=== PATIENT | male | born 1960 | race Caucasian/White ===

== ENCOUNTER 2016-12-30 18:13 | Observation (INO) | payer OTHER ==
[~2016-12-30] VITALS: Ht 195.6 cm; Wt 76.8 kg
[2016-12-30 18:30] VITALS: BP 103/66; PULSE 68; RESP 16; O2SAT 97
--- NOTE | 2016-12-30 18:58 | ED.REPORT ---
HPI-General Illness Date of Service Dec 30, 2016 ED Provider: Cheo Peñaloza Patient is a 62 year old male who presents to the ED via EMS smelling of alcohol and barely responsive to painful stimuli. He was found by someone who was picking him up to go to an AA meeting. He is able to maintain his own airway and is awake but is not responsive to questioning. Nursing Notes Stated Complaint: INTOXICATED Chief Complaint: Substance Abuse Nursing Notes Reviewed: Yes Allergies: Coded Allergies: No Known Allergies (Unverified , 12/30/16) General Time Seen by MD: 18:57 Chief Complaint Other (Intoxication) Hx Obtained From: EMS Arrived By: Ambulance Past Medical History Unable to Obtain History Past medical history, Past surgical history, Family history, Smoking history, Social history Review of Systems Unable to Obtain ROS Intoxicated (I was able to gather somewhat of the review of systems after Mr. Campbell started to sober up. He does not have any specific complaints.) Full Review of Systems Constitutional: Denies: Chills Eyes: Denies: Blurred left, Blurred right Respiratory: Denies: Dyspnea on exertion Cardiovascular: Denies: Chest pain, Orthopnea GI: Denies: Abdominal pain Male: Denies Dysuria, Denies Flank pain Musculoskeletal: Denies: Back pain, Extremity swelling Physical Exam Vital Signs Vital Signs Date Time Temp Pulse Resp B/P Pulse Ox O2 Delivery O2 Flow Rate FiO2 12/30/16 19:40 65 17 108/60 97 Room Air 12/30/16 18:30 36.1 68 16 103/66 97 Room Air Head / Eyes: Atraumatic, Normocephalic Neck: Full range of motion Respiratory: No respiratory distress Abdomen / GI: Soft, Non-tender Extremities: No swelling Skin: Warm, Dry General/Constitutional: Awake Yawns, looks at me when questioned but does not answer and stares away. Back: Atraumatic Mental Status: Positive: Responds to painful stim, Responds to verbal stim Interpretation & Diagnostics Lab Results Interpretation Result Diagram: 12/30/160 12/30/16 183 Test 12/30/16 18:30 White Blood Count 7.9th/mm3 (3.8-10.1) Red Blood Count 5.56mil/mm3 (4.40-5.80) Hemoglobin 17.6g/dL (13.8-17.2) Hematocrit 51.3% (41.0-50.0) Mean Corpuscular Volume 92.3fL (81-100) Mean Corpuscular Hemoglobin 31.7pg (27.0-35.0) Mean Corpuscular Hemoglobin Concent 34.3% (32.0-37.0) Red Cell Distribution Width 14.0% (12.3-15.4) Platelet Count 153bil/L (150-400) Neutrophils (%) (Auto) 55.2% (40-74) Lymphocytes (%) (Auto) 35.2% (14-46) Monocytes (%) (Auto) 4.7% (4-12) Eosinophils (%) (Auto) 3.8% (0-5) Basophils (%) (Auto) 0.5% (0-3) Sodium Level 143mEq/L (134-144) Potassium Level 5.0mEq/L (3.5-5.2) Chloride Level 104mEq/L (97-108) Carbon Dioxide Level 19mmol/L (18-29) Blood Urea Nitrogen 10mg/dL (8-27) Creatinine 0.85mg/dL (0.76-1.27) Estimat Glomerular Filtration Rate 97mL/min (>59) Glucose Level 93mg/dL (60-99) Calcium Level 8.6mg/dL (8.5-10.1) Total Bilirubin 0.4mg/dL (0.0-1.2) Aspartate Amino Transf (AST/SGOT) 156U/L (0-50) Alanine Aminotransferase (ALT/SGPT) 108U/L (0-44) Alkaline Phosphatase 53U/L (25-160) Troponin T < 0.010ug/L (0.0-0.011) Total Protein 7.4g/dL (6.4-8.4) Albumin 4.0g/dL (3.4-5.0) Alcohols 468mg/dL (0-10) Lab Results Interpretation: EtOH level at 1933 was 468 ECG Interpretation ECG Interpretation: sinus bradycardia rate 62 < 1mm ST elevation v3 alone Time: 19:19 Interpreted by: ED physician CT Head Interpretation IMPRESSION: 1. No acute intracranial findings. 2. 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 Mara Kiviat, M.D. Study: Head CT no contrast Interpretation / Wet Read by: Interpret - Radiologist Re-Eval/Medical Decision Med Decision/Clinical Course Patient presented smelling of alcohol with no signs of obvious trauma. However, he would not answer questions therefore we performed a head CT with found no evidence of injury. He had an alcohol level >450 and was given IV fluids. He has been resting comfortably. He will be discharged home when sober. 2326: Beck is resting comfortably. He offers no complaint. I asked him specifically if he is having any chest pain and he says no. He also denies having any trauma or any complaints. His speech is still somewhat slurred. His initial voss EKG was not indicative of an HI however is not normal. This will be repeated as was his troponin. Care will be endorsed to Dr. Hebert at the conclusion of my shift. Time of Eval: 21:38 Re-Evaluation/Progress Note: Patient is starting to awake and was able to give his name to the nurse. Discharge & Departure Shift Change Sign-Out Patient Care Transferred: Yes Discussed Complaint(s): Yes Imaging Studies: Done, reviewed by me Response to Therapy: Improved Transfer of Care to Dr. Hebert at 0000 Primary Impression: Alcohol abuse Care Transferred to: Dr. Hebert Care Transferred at: 00:00 Scribe Attestation Portions of this note were transcribed by Zaira Gibson. I, Dr. Peñaloza personally performed the history, physical exam and medical decision-making; I reviewed and confirmed the accuracy of the information in the transcribed note. Signed by: Zaira Gibson 12/31/16, 0000 Cheo Peñaloza DO Dec 30, 2016 18:58 ZAIRA GIBSON Dec 30, 2016 19:04
[2016-12-30 19:01] LABS: BASOPHILS % (AUTO) 0.5 % (0-3); EOSINOPHILS % (AUTO) 3.8 % (0-5); MONOCYTES % (AUTO) 4.7 % (4-12); Mean Corpuscular Hemoglobin 31.7 pg (27.0-35.0); Mean Corpuscular Volume 92.3 fL (81-100); NEUTROPHILS % (AUTO) 55.2 % (40-74); Platelet Count 153 bil/L (150-400)
[2016-12-30 19:38] LABS: TROPONIN T < 0.010 ug/L (0.0-0.011)
[2016-12-30 19:40] VITALS: BP 108/60; PULSE 65; RESP 17; O2SAT 97
[2016-12-30 23:35] VITALS: BP 101/62; PULSE 67; RESP 18; O2SAT 97
[2016-12-31] VITALS (17 sets, daily range): BP systolic 96–124; BP diastolic 45–75; PULSE 56–71; RESP 10–22; O2SAT 96–98
[2016-12-31] MEDS ORDERED: Ondansetron 2 mg/mL 2 mL Inj IVPUSH PRN (09:20)
[2016-12-31] MEDS ORDERED: Alum-Mag Hydrox-Simeth 30 mL Suspension PO PRN (09:20)
[2016-12-31] MEDS ORDERED: Polyethylene Glycol (PEG) 17 Gm Powder PO PRN (09:20)
[2016-12-31] MEDS ORDERED: Heparin 5,000 Unit/mL Inj IVPUSH ONE (09:50)
[2016-12-31] MEDS ORDERED: Heparin 25K Unit/500mL 0.45 NS 25,000 UNIT in IV Premix 1 EACH IV ONE (09:50)
[2016-12-31] MEDS ORDERED: Heparin 25K Unit/500mL 0.45 NS 25,000 UNIT in IV Premix 1 EACH IV SCH (10:55)
[2016-12-31] MEDS ORDERED: Heparin 5,000 Unit/mL Inj IVPUSH PRN (10:55)
--- NOTE | 2016-12-31 11:09 | DRSVH ---
[facility] [address] [place] [address] Echocardiogram Report Name: MOIRA DOMINGUEZ JStudy Matthew e: 12/31/2016 Rehan ht: 76 in Hospital Exam Location: [facility] ht: 182 lb Gender: Male BSA: 2.1 m2 : 1960 Age: 56 yrs BP: 99/55 mmHg Reason For Study: NSTEMI Ordering Physician: [facility]PITAL[facility] Performed By: Chapis Ríos Referring Physician: Cb Bolanos Interpretation Summary The left ventricle is normal in size, wall thickness, and systolic function without any focal wall motion abnormalities. The ejection fraction is estimated to be 55-60%. There is no significant valvular heart disease. Procedure: A two-dimensional transthoracic echocardiogram with color flow and Doppler was performed. The study quality was technically adequate. Most of the acoustic windows were suboptimal, but the best imaging was obtained from the subcostal window. The study is performed in the ER. The patient was in a bradycardic rhythm during the exam. The heart rate ranged between 52-59 bpm during the study. Left Ventricle: The left ventricle is normal in size, wall thickness, and systolic function without any focal wall motion abnormalities. The ejection fraction is estimated to be 55-60%. The E/A wave ratio > 2.0 could be indicative of increased preload or reduced atrial contractility. Clinical correlation is necessary. Right Ventricle: The right ventricle is normal in size and function. Atria: Both atria are normal in size. There is no Doppler evidence for an atrial septal defect. Mitral Valve: The mitral valve leaflets appear normal. There is no evidence of stenosis, fluttering, or prolapse. There is trace mitral regurgitation. Aortic Valve: The aortic valve is trileaflet. The aortic valve opens well. No aortic regurgitation is present. Tricuspid Valve: The tricuspid valve leaflets are thin and pliable. There is a trace or physiologic amount of tricuspid regurgitation. Pulmonary artery pressures cannot be estimated because of the lack of a measurable TR jet velocity. Pulmonic Valve: The pulmonic valve is not well visualized. There is no pulmonic valvular regurgitation. Great Vessels: The aortic root is normal size. The ascending aorta could not be visualized. The pulmonary artery is not well visualized, but is probably normal size. The IVC is of normal diameter and collapses greater than 50% with a sniff. This suggests a low right atrial pressure of 3 mm Hg. Pericardium/ Pleura There is no pericardial effusion. There is no pleural effusion. MMode/2D Measurements & Calculations LVIDd: 4.7 cm LA dimension: 3.1 cm RA long axis LVOT diam: 2.2 cm LVIDs: 3.4 cm AoV Opening FS: 27.9 % LA A2 area: 17.3 cm RA area EPSS: 0.40 cm LA A4 area: 17.2 cm Ao root diam IVSd: 0.81 cm LA length (vol) : 14.5 cm LVPWd: 0.94 cm RA vol Ao Arch Diam (Prox LA vol: 48.4 ml : 45.0 ml Trans): 3.0 cm LA vol index RA : 21.1 mm/ RVDd major IVC diam: 1.8 cm : 6.5 cm LV chung. diameter/BSA LV sys. diameter/BSA RVD2 (mid) (cm/m^2): 2.2 (cm/m^2): 1.6 : 3.3 cm Doppler Measurements & Calculations Ao V2 max MV E max josé miguel MV E/A: 2.8 PA V2 max : 111.8 cm/sec : 77.6 cm/sec Pulm A Revs : 69.7 cm/sec Ao max P.0 mmHg MV A max josé miguel Dur: 0.13 sec PA mean PG Ao mean P.5 mmHg : 27.6 cm/sec MV A dur : 1.0 mmHg LVOT Max José Miguel MV P1/2t: 96.9 msec : 0.16 sec : 117.9 cm/sec VERONICA(I,D): 3.6 cm sev ratio: 0.99 MV P1/2t max josé miguel Ao V2 mean LV V1 max PG PA V2 mean : 74.1 cm/sec : 47.3 cm/sec Ao V2 VTI: 24.6 cm LV V1 VTI PA pr(Accel) MVA(P1/2t): 2.3 cm2 : 24.4 cm : 29.1 mmHg VERONICA(V,D): 3.8 cm2 VERONICA indexed to BSA Anjel Roy Dur - MV A (cm^2/m^2): 1.7 Dur: -0.03 msec Electronically signed by: Tucker Prabhakar on Reading Physician:12/31/2016 11:08 AM
[2016-12-31] MEDS ORDERED: Thiamine Inj 100 MG in Dextrose 5% 50 ML IV ONE (11:15)
[2016-12-31] MEDS ORDERED: Thiamine Inj 100 MG, Folic Acid Inj 1 MG, Magnesium Sulfate 50% Inj 2 GM, Multivitamins... IV ONE ×5 (11:15)
[2016-12-31 11:54] LABS: INR 0.93 ratio
[2016-12-31] MEDS ORDERED: LEVO200T6 PO (12:49)
--- NOTE | 2016-12-31 13:10 | NUR ---
admit pt arrived to [facility] from ED soil of urine. Pt was A&OX4, answered questions appropriately but was forgetful. VS WNL. IV therapy had to start IV as pt had pulled two out in ER. Banana bag and thiamine started. MD and pts family at bedside. Pt stated that he started drinking 1-2L of liquor a day 2 weeks ago after being sober for 5 years. Pts blood ETOH was 468 in ER and blew a 1.98 at 0730. CIWA score at initial assessment was zero and pt still appeared to be intoxicated as evidence by slurred speech and smell of alcohol. Pt has hx of seizures with ETOH withdrawals. Fall and seizure precautions in place. EKG done at bedside. Pt left for kiln labourer after assessment.
[2016-12-31] MEDS ORDERED: Nitroglycerin 50,000 mcg/250 mL D5W Premix IV ONE (13:23)
[2016-12-31] MEDS ORDERED: Heparin 1,000 Units/500 mL NS Premix IV ONE (13:23)
[2016-12-31] MEDS ORDERED: 0.9% Sodium Chloride 1,000 ML ONE (13:23)
[2016-12-31] MEDS ORDERED: Heparin 5,000 Unit/mL Inj ONE (13:23)
[2016-12-31] MEDS: Thiamine Inj 100 MG in 0.9% Sodium Chloride 100 ML IV SCH (13:30)
[2016-12-31] MEDS: Multivit-Miner-Folic Acid-Iron Tablet PO SCH (13:30)
--- NOTE | 2016-12-31 13:45 | NUR ---
off unit pt left unit to director of cath lab. no s/s of distress at time of transfer
[2016-12-31] MEDS ORDERED: fentaNYL-PF 50 mCg/mL 2 mL Inj ONE (13:56)
--- NOTE | 2016-12-31 14:08 | CONS ---
[address] [address] CONSULTATION REPORT PATIENT: MOIRA DOMINGUEZ : 1960 MR#: [id number] ADMIT: 12/31/2016 JOB ID: [id number] DATE OF SERVICE: 12/31/2016 REQUESTED BY: Gregory Corona DO. REASON FOR EVALUATION: Abnormal EKG and elevated troponin. HISTORY: The patient is a 56 years old alcoholic male. He stated that he has not drank for five years, and he went back to drinking 1-1/2 weeks ago. He has not eaten anything for the past 3-4 days. When he drank, he got drunk. He was found this morning by someone who was picking him up to go to an AA meeting. He was intoxicated when he arrived in the emergency department yesterday evening. EKG from yesterday at 7:11 p.m. shows sinus rhythm, rate [address]-segment elevation. Repeat EKG this morning showed inferior ST-segment elevation as well. PAST MEDICAL HISTORY: Thyroid disorder. PAST SURGICAL HISTORY: None. HOME MEDICATIONS: Thyroid pill. SOCIAL HISTORY: He lives in [place]. He works as a león. He used to smoke one pack every three days for 30 years. He used coke, pot and heroin in the past. He quit those 12 years ago. FAMILY HISTORY: No history of premature coronary artery disease. REVIEW OF SYSTEMS: All 10 systems are reviewed and pertinent negative for no chest pain. He has some back pain. He had his physical in October of this year. PHYSICAL EXAMINATION: Reveals a middle-aged male who appears older than his stated age. Temperature is 36.6. Blood pressure is 112/66. Pulse 69. Body weight is 76.7 kg. Head and face have normal configuration. Anicteric sclerae. Dry mucosa. Neck supple. No jugular venous distention or carotid bruits. Chest: Normal expansion. Lungs are clear to auscultation. Heart: The first and second heart sounds normal. No gallop or murmur. Abdomen: Soft, nontender. Extremities: No clubbing, cyanosis, or edema. Peripheral pulses are equal bilaterally. Neurologic was intact. Echocardiogram showed normal left ventricular size with ejection fraction 55% to 60%. No valvular abnormality. BLOOD TESTS: Show hemoglobin 17.6, WBC 7.9, platelets 153. Sodium 143, potassium 5.0, chloride 104, bicarb 19, BUN 10, creatinine 0.85. AST 156, ALT 108. Troponin T was less than 0.01, then went up to 0.021, 0.031 and 0.030. Blood alcohol level is 468. IMPRESSION: 1. Elevated troponin. 2. Diffuse ST segment elevation, compatible with pericarditis. 3. Alcoholic. 4. History of smoking. PLAN: I will arrange for the patient to undergo coronary angiogram to delineate his coronary anatomy and risk stratification. I do not expect to find any significant coronary artery disease. I explained the rationale of performing the procedure to the patient. He understands and agreed to proceed with the procedure. PAOLA
--- NOTE | 2016-12-31 14:44 | CS94 ---
[address] [address] DIAGNOSTIC CARDIAC CATHETERIZATION PATIENT: MOIRA DOMINGUEZ : 1960 MR#: [id number] ADMIT: 12/31/2016 JOB ID: [id number] SERVICE DATE: 12/31/2016 PATIENT PROFILE: The patient is a 56-year-old male who is an alcoholic. He has ST-segment elevation and elevated troponin. PROCEDURES: 1. Retrograde left heart catheterization. 2. Selective coronary angiogram. 3. Left ventricular angiogram. VASCULAR CLOSURE DEVICE: Perclose. COMPLICATIONS: None. METHOD: Retrograde left heart catheterization was performed from the right groin under 1% lidocaine local anesthesia using a 6-Central African sheath. Selective coronary angiogram was performed in multiple projections, including cranial and caudal angulations with hand injected contrast via JL4 and 3DRC catheters. A 6-Central [place] angulated pigtail catheter was advanced to the left ventricle and left ventricular angiogram was performed in the 30 degree GALLEGOS view by injecting contrast at the rate of 10 cc/second for 3 seconds. This catheter was withdrawn. Right femorla angiogram was performed. Following sheath removal, hemostasis was achieved by using a Perclose device. The patient tolerated the procedure well. He was transferred to [facility] in good condition. TOTAL CONTRAST USED: 70 cc. FLUOROSCOPY TIME: 1.6 minutes. RESULTS: 1. Selective coronary angiography: a. Left main coronary artery is normal. b. The left anterior descending artery has 20% stenosis in the proximal portion. c. The circumflex artery is normal. d. The dominant right coronary artery is normal. 2. Left ventricular angiogram demonstrated normal left ventricular systolic function (left ventricular ejection fraction 65%). There is no wall motion abnormality. There is no mitral regurgitation. 3. There is no gradient across the aortic valve on catheter withdrawal. 4. Aortic pressure is 118/62 mmHg. Left ventricular pressure is 116/8 mmHg. 5. Left ventricular end-diastolic pressure is 13 mmHg. CONCLUSION: 1. Minor 20% proximal left anterior descending artery stenosis. 2. Left ventricular ejection fraction of 65%. 3. LVEDP is 13 mmHg. MTDD
--- NOTE | 2016-12-31 17:19 | NUR ---
report to hudson vance.
--- NOTE | 2016-12-31 17:45 | NUR ---
back on unit pt arrived back on unit. restarted thiamine and banana bag. pt ordered dinner. right groin site is CDI non-tender. patient c/o no pain. no s/s of ETHO withdrawal
--- NOTE | 2016-12-31 17:47 | NUR ---
transfer to floor complete by fred. care was transferred to floor rn donavon and groin was soft and nontender at time of transfer.
--- NOTE | 2016-12-31 17:50 | PCM.HPMED ---
Subjective Date of Service Dec 31, 2016 Primary Provider: Admitting Physician: Renan Yap MD Primary Care Physician: Casey Attending Physician: Renan Yap MD Admit Status: From the Emergency Department Chief Complaint: Intoxication History of Present Illness: 56-year-old male with past medical history of hypothyroidism, hepatitis C, and seizures related to alcohol withdrawal presents to the emergency department intoxicated after being found barely responsive by a friend picking in him up for an AA meeting. In the emergency department he was found to have an alcohol level of 468 and less than [address] elevation in V3 alone on EKG. This prompted ordering of troponin and repeat EKGs. 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 Repeat troponin came back elevated at 0.021 and then 0.031. Cardiology was consulted and patient was admitted for NSTEMI. He has no chest pain, chest pressure, diaphoresis, or discomfort. He was incontinent of bowel in the emergency department. She does endorse shortness of breath with exertion gradually worsening over the last 3 years. Per patient report he had been sober for almost 5 years with an anniversary on December 30. Just over a week ago he started drinking again when he was laid off from his job which "put him over the edge" he has been drinking a pint at a time equaling more than a fifth a day. 5 years ago he was hospitalized for one month with profound withdrawals from alcohol and seizure. He is not currently on any seizure prophylaxis medication, and has never had a seizure outside of withdrawing from alcohol. Review of Systems: A comprehensive review of systems was conducted with the patient and found to be negative except as above in the History of Present Illness. Allergies Coded Allergies: No Known Allergies (Unverified , 12/30/16) Home Medications Levothyroxine 200 g daily PMH Alcohol withdrawal with seizure Hypothyroidism Hepatitis C Surgical History Right thumb distal phalanx amputation ORIF right middle finger Family History Paternal grandfather with gastric cancer Father with leukemia No history of diabetes or heart disease Social History Occupation: [employer], currently laid off Hx Alcohol Use: Yes Alcoholic Drinks Per Day: over a fifth Hx Substance Use: Yes (remote history of IV cocaine and heroin use, shared needles with partner) Hx Tobacco Use: Yes Smoking Status: Former Smoker (1 pack every 3 days) Living Arrangement: with Family (lives with son) Additional Information Patient lives in [place] in a house that he rents from his ex- with their adult son. He has an adult daughter. Exam Vital Signs Vital Sign - Last Date Time Temp Pulse Resp B/P Pulse Ox O2 Delivery O2 Flow Rate FiO2 12/31/16 11:22 71 12/31/16 11:15 36.6 19 112/66 98 Room Air Intake and Output 12/30/16 12/30/16 12/31/16 Cumulative From/Thru 15:00 23:00 07:00 12/30/16 19:41 - 12/30/16 19:41 Intake Total 2000 ml 2000 ml Balance 2000 ml 2000 ml Intake IV Total 2000 ml 2000 ml Exam General: No acute distress, well-developed, well-nourished, appropriately interactive HEENT: Normocephalic, atraumatic. External ears without defect. Pupils equal, round, and reactive to light and accommodation. Anicteric sclerae, injected moist conjunctivae, and no lid lag. Oropharynx free of erythema and cobble stoning with dry mucosa. Neck: Supple with full range of motion. No jugular venous distension. No lymphadenopathy or thyromegaly. Cardiovascular: Regular rate and rhythm with no murmurs, rubs, or gallops appreciated Pulmonary: Clear to auscultation bilaterally with no crackles, wheezes, or rhonchi. Normal respiratory effort with no use of accessory muscles. Abdomen: Bowel tones present. Soft, nontender, nondistended. No hepatosplenomegaly or masses appreciated. Extremities: No clubbing, cyanosis, edema, or lymphadenopathy appreciated. Skin: Normal temperature, turgor, and texture; no rash, ulcers, or subcutaneous nodules appreciated. Neurological: Cranial nerves grossly intact. Normal muscle strength, tone, and bulk. No known gait impairment. Psychiatric: Normal mood and affect. Alert and oriented to person, place, and time. Speaking in full sentences Lab and Diagnostics Result Diagram: 12/30/16182912/30/16 183 12-lead ECG Sinus rhythm Anterolateral ST segment elevation Inferior ST segment elevation Cardiac Echo Impressions Echocardiogram Report Interpretation Summary The left ventricle is normal in size, wall thickness, and systolic function without any focal wall motion abnormalities. The ejection fraction is estimated to be 55-60%. There is no significant valvular heart disease. Additional Diagnostics: DIAGNOSTIC CARDIAC CATHETERIZATION RESULTS: 1. Selective angiography: a. Left main coronary artery is normal. b. The left anterior descending artery has 20% stenosis in the proximal portion. c. The circumflex artery is normal. d. The dominant right coronary artery is normal. 2. Left ventricular angiogram demonstrated normal left ventricular systolic function (left ventricular ejection fraction 65%). There is no wall motion abnormality. There is no mitral regurgitation. 3. There is no gradient across the aortic valve on catheter withdrawal. 4. Aortic pressure is 118/62 mmHg. Left ventricular pressure is 116/8 mmHg. 5. Left ventricular end-diastolic is 13 mmHg. CONCLUSION: 1. Minor 20% proximal left anterior descending artery stenosis. 2. Left ventricular ejection fraction of 65%. 3. LVEDP is 13 mmHg. Cb Espana MD 12/31/16 1429 Assessment & Plan 56-year-old male with past medical history of hypothyroidism, hepatitis C, and seizures related to alcohol withdrawal presents to the emergency department intoxicated after being found barely responsive. He was found to have acute alcohol intoxication, elevated troponin, and ST changes on EKG. 1.Initially suspected NSTEMI, present on admission, acute - ST changes on anterior lateral and later also inferior leads were noted on EKG - Troponin trend negative, 0.021, 0.031, 0.030 - Patient remains asymptomatic - Patient started on aspirin, metoprolol - Patient has elevated transaminases and history of hepatitis C therefore a statin was not initiated - Echocardiogram as above - Heart catheterization shows minor 20% proximal left anterior descending artery stenosis with normal left ventricular ejection fraction and left ventricular end-diastolic pressure of 13 mmHg 2. Altered mental status due to acute alcohol intoxication, present on admission, improving- - patient alert and speaking in full sentences upon examination - Drinking for the last 7-10 days with a 5 year period of sobriety prior makes alcohol withdrawal last likely however patient has history of seizures and extended hospitalization related to withdrawal - CIWA protocol initiated with IV thiamine and banana bag given 3. Transaminitis, present on admission, likely subacute - AST 156, ALP 108 on admission - History of hepatitis C and alcohol use - Continue to monitor with CMP in the a.m. 4. Hypothyroidism, present on admission, chronic - Continue levothyroxine 200 g daily Bowel regimen Senna and MiraLAX PRN. Zofran when necessary for nausea and vomiting. DVT prophylaxis with sub cutaneous heparin High-risk meds include IV diazepam Patient is admitted under observation status with expected length of stay less than 2 midnights due to severity of presenting symptoms, risk of adverse event, and complexity of treatment plan. discharge tomorrow Pain Evaluation: Adequate Pain Control GI Prophylaxis: Not indicated VTE Prophylaxis: Sub-Q Heparin (Unfractionated) Resuscitation Status: CPR: Attempt Resuscitation Attending Statement The patient was seen and examined independently on 12/31/2016 and case discussed with Dr. Cunningham , I agree with the discharge summary as outlined in the note above. Chela Cunningham DO Dec 31, 2016 12:53 Renan Yap MD Dec 31, 2016 20:12
[2016-12-31] MEDS ORDERED: 0.9% Sodium Chloride 250 ML ONE (20:14)
[2017-01-01] MEDS: Heparin 5,000 Unit/mL Inj SUBQ SCH ×2 (00:47→09:15)
[2017-01-01 00:52] VITALS: BP 107/61; PULSE 62; RESP 18; O2SAT 97
[2017-01-01 04:58] VITALS: BP 109/62; PULSE 55; RESP 18; O2SAT 97
[2017-01-01 05:28] VITALS: PULSE 50
[2017-01-01 06:10] LABS: Mean Corpuscular Hemoglobin 31.5 pg (27.0-35.0); Mean Corpuscular Volume 94.1 fL (81-100)
--- NOTE | 2017-01-01 06:38 | NUR ---
CIWA CIWA was 10 at HS. 5mg of Valium given and CIWA went down to 6 after 10mins. Pt was able to slept intermittently. No seizure activity. CIWA remained <10 for the rest of the shift. Tele SB in the 40s to 50s. HS dose of Metoprolol held.
[2017-01-01 08:00] VITALS: PULSE 55
[2017-01-01] MEDS: Multivit-Miner-Folic Acid-Iron Tablet PO SCH (09:13)
[2017-01-01] MEDS: Thiamine Inj 100 MG in 0.9% Sodium Chloride 100 ML IV SCH (09:14)
--- NOTE | 2017-01-01 10:35 | NUR ---
Nausea Pt complains of nausea following consumption of breakfast, 4 Mg IV Zofran given as ordered by MD. Will continue to monitor.
[2017-01-01 10:58] VITALS: BP 98/59; PULSE 77; RESP 16; O2SAT 97
[2017-01-01] MEDS ORDERED: Thiamine PO (12:18)
[2017-01-01] MEDS ORDERED: CHLO25CA10 PO (12:18)
--- NOTE | 2017-01-01 12:41 | PCM.DIMED ---
Chela Cunningham DO 01/01/17 1241: Discharge Instructions Date of Service Jan 01, 2017 Dates of Hospitalization Dec 31, 2016 at 09:08 Discharge Diagnosis Discharge Diagnosis 1. Initially suspected NSTEMI, ruled out 2. Altered mental status due to acute alcohol intoxication 3. Transaminitis 4. Hypothyroidism Medication Instructions Your body may not go through withdrawals from alcohol since you have only been drinking for a short time however we want to make sure that if you do start to have symptoms that they are treated. Withdrawal symptoms include: pulse greater than 90 bpm, elevated blood pressure , she came in your hands, irritability, headache Take the chlordiazepoxide (Librium) on the following schedule: Day 1: Take 2-4 tablets every 4-6 hours as needed for withdrawal symptoms Day 2: Take 2-4 tablets every 6-8 hours as needed for withdrawal symptoms Day 3: Take 2-4 tablets every 12 hours as needed for withdrawal symptoms Day 4: Take 2-4 tablets at bedtime as needed for withdrawal symptoms Continue to take thiamine for the next 10 days. I recommend taking a multivitamin [id number] this will help supplement nutrients until you are eating full well-balanced diet. Diet Heart Healthy Activity No restrictions Call your provider Fever or Chills, Shortness of breath, Bleeding, Chest pain, Vomitting, Excessive diarrhea, Weakness (unilateral) Patient Instructions You did not have a heart attack, there is only a slight narrowing of one of your heart vessels visualized on cardiac catheterization. Continue to exercise regularly and eat a well-balanced heart healthy diet. Follow-up plan Follow up with your primary care provider in one week. When you call to schedule an appointment make sure that they know it is for hospital follow-up. Follow-up Provider: TORIN-YOLANDE GAVIN Follow-up with PCP in: 1 week Renan Yap MD 01/01/17 1309: Discharge Instructions Attending's Statement The patient was seen and examined independently on 01/01/2017 and case discussed with Dr. Cunningham , I agree with the discharge instructions as outlined in the note above. Chela Cunningham DO Jan 01, 2017 12:41 Renan Yap MD Jan 01, 2017 13:09
--- NOTE | 2017-01-01 13:40 | NUR ---
Discharge Pt discharged at this time, all belongings gathered and returned to pt. VSS, CIWA = 0. No complains of increased chest discomfrt or SOB. Hard copy of scripts given to pt to fill. IV D/Cd intact, tele monitor removed. Discharge packet printed and reviewed with pt. Pt awaiting ride home from daughter. Addendum: 01/01/17 at 1431 by KVNG SANTOS RN Daughter at bedside, pt taken [place] [facility] [place] KAMILAH in wheelchair to be driven home in private vehicle driven by daughter.
--- NOTE | 2017-01-01 14:14 | NUR ---
Social Work: Screening / Attempted CD / D/C Data: Pt is a 56 y/o male admitted for nstemi. Pt's PCP is not listed. Pt's insurance is [employer]. EMR reviewed. Pt reports heavy alcohol use. [employer] attempted CD assessment, pt declined. Pt declined CD resources stating he goes to AA meetings. No further d/c planning needed. Assessment: Pt who is independent at baseline. Plan: Pt will d/c home via POV today. Pt declined CD resources stating he goes to AA meetings. No further d/c planning needed. Brooke Mendoza MSW
--- NOTE | 2017-01-01 20:49 | PCM.DC.MED ---
Discharge Summary Date of Service Jan 01, 2017 Dates of Hospitalization Date of Hospital Admission Dec 31, 2016 at 09:08 Date of Discharge: Jan 01, 2017 Providers: Admitting Physician: Renan Yap MD Primary Care Physician: Casey Attending Physician: Renan Yap MD Diagnosis at Time of Discharge Diagnosis at Time of Discharge 1. Initially suspected NSTEMI, ruled out 2. Altered mental status due to acute alcohol intoxication 3. Transaminitis 4. Hypothyroidism Procedures ECG 12 Lead Sinus rhythm Anterolateral ST segment elevation Inferior ST segment elevation Cardiac Echo Impression Echocardiogram Report Interpretation Summary The left ventricle is normal in size, wall thickness, and systolic function without any focal wall motion abnormalities. The ejection fraction is estimated to be 55-60%. There is no significant valvular heart disease. Other Diagnostics DIAGNOSTIC CARDIAC CATHETERIZATION RESULTS: 1. Selective angiography: a. Left main coronary artery is normal. b. The left anterior descending artery has 20% stenosis in the proximal portion. c. The circumflex artery is normal. d. The dominant right coronary artery is normal. 2. Left ventricular angiogram demonstrated normal left ventricular systolic function (left ventricular ejection fraction 65%). There is no wall motion abnormality. There is no mitral regurgitation. 3. There is no gradient across the aortic valve on catheter withdrawal. 4. Aortic pressure is 118/62 mmHg. Left ventricular pressure is 116/8 mmHg. 5. Left ventricular end-diastolic is 13 mmHg. CONCLUSION: 1. Minor 20% proximal left anterior descending artery stenosis. 2. Left ventricular ejection fraction of 65%. 3. LVEDP is 13 mmHg. 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 In the emergency department he was found to have an alcohol level of 468 and less than [address] elevation in V3 alone on EKG. This prompted ordering of troponin and repeat EKGs. 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 Repeat troponin came back elevated at 0.021 and then 0.031. Cardiology was consulted and patient was admitted for NSTEMI. He has no chest pain, chest pressure, diaphoresis, or discomfort. He was incontinent of bowel in the emergency department. She does endorse shortness of breath with exertion gradually worsening over the last 3 years. Per patient report he had been sober for almost 5 years with an anniversary on December 30. Just over a week ago he started drinking again when he was laid off from his job which "put him over the edge" he has been drinking a pint at a time equaling more than a fifth a day. 5 years ago he was hospitalized for one month with profound withdrawals from alcohol and seizure. He is not currently on any seizure prophylaxis medication, and has never had a seizure outside of withdrawing from alcohol. 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 He was found to have acute alcohol intoxication, elevated troponin, and ST changes on EKG. 1.Initially suspected NSTEMI, present on admission, ruled out - ST changes on anterior lateral and later also inferior leads were noted on EKG - Troponin trend negative, 0.021, 0.031, 0.030 - Patient remains asymptomatic - Patient started on aspirin, metoprolol however these were discontinued due to patient not having acute coronary syndrome. - Patient has elevated transaminases and history of hepatitis C therefore a statin was not initiated - Echocardiogram as above - Heart catheterization shows minor 20% proximal left anterior descending artery stenosis with normal left ventricular ejection fraction and left ventricular end-diastolic pressure of 13 mmHg 2. Altered mental status due to acute alcohol intoxication, present on admission, improving- - patient alert and speaking in full sentences upon examination - Drinking for the last 7-10 days with a 5 year period of sobriety prior makes alcohol withdrawal last likely however patient has history of seizures and extended hospitalization related to withdrawal - CIWA protocol initiated with IV thiamine and banana bag given - Patient did not appear to be going through withdrawals and may not, she was placed on a Librium taper as needed due to his history of severe alcohol withdrawal with seizure. 3. Transaminitis, present on admission, likely subacute - AST 156, ALT 108 on admission - History of hepatitis C and alcohol use - Recommend recheck of hepatic function in 1 week 4. Hypothyroidism, present on admission, chronic - Continue levothyroxine 200 g daily - TSH elevated at 5.9 to however patient admits to not taking medication for at least the last week. - Recommend recheck of thyroid function in 6-8 week Exam Vital Signs (Last) Date Time Temp Pulse Resp B/P Pulse Ox O2 Delivery O2 Flow Rate FiO2 01/01/17 10:58 36.6 77 16 98/59 97 Room Air Exam General: No acute distress, well-developed, well-nourished, appropriately interactive HEENT: Normocephalic, atraumatic. External ears without defect. Pupils equal, round, and reactive to light and accommodation. Anicteric sclerae, injected moist conjunctivae, and no lid lag. Oropharynx free of erythema and cobble stoning with moist mucosa. Neck: Supple with full range of motion. No jugular venous distension. No lymphadenopathy or thyromegaly. Cardiovascular: Regular rate and rhythm with no murmurs, rubs, or gallops appreciated Pulmonary: Clear to auscultation bilaterally with no crackles, wheezes, or rhonchi. Normal respiratory effort with no use of accessory muscles. Abdomen: Bowel tones present. Soft, nontender, nondistended. No hepatosplenomegaly or masses appreciated. Extremities: Mild bruising on arms bilaterally. No clubbing, cyanosis, edema, or lymphadenopathy appreciated. Skin: Normal temperature, turgor, and texture; no rash, ulcers, or subcutaneous nodules appreciated. Neurological: Cranial nerves grossly intact. Normal muscle strength, tone, and bulk. No known gait impairment. Psychiatric: Normal mood and affect. Alert and oriented to person, place, and time. Speaking in full sentences Test 12/30/16 18:30 12/31/16 11:15 12/31/16 12:00 01/01/17 05:57 Neutrophils (%) (Auto) 55.2% (40-74) Lymphocytes (%) (Auto) 35.2% (14-46) Monocytes (%) (Auto) 4.7% (4-12) Eosinophils (%) (Auto) 3.8% (0-5) Basophils (%) (Auto) 0.5% (0-3) Total Bilirubin 0.4mg/dL (0.0-1.2) Aspartate Amino Transf (AST/SGOT) 156U/L (0-50) Alanine Aminotransferase (ALT/SGPT) 108U/L (0-44) Alkaline Phosphatase 53U/L (25-160) Total Protein 7.4g/dL (6.4-8.4) Albumin 4.0g/dL (3.4-5.0) Alcohols 468mg/dL (0-10) Prothrombin Time 9.9sec (8.1-12.5) Prothromb Time International Ratio 0.93ratio Activated Partial Thromboplast Time 26.8sec (22.8-33.0) Troponin T 0.030ug/L (0.0-0.011) White Blood Count 6.4th/mm3 (3.8-10.1) Red Blood Count 4.26mil/mm3 (4.40-5.80) Hemoglobin 13.4g/dL (13.8-17.2) Hematocrit 40.1% (41.0-50.0) Mean Corpuscular Volume 94.1fL (81-100) Mean Corpuscular Hemoglobin 31.5pg (27.0-35.0) Mean Corpuscular Hemoglobin Concent 33.4% (32.0-37.0) Red Cell Distribution Width 13.9% (12.3-15.4) Platelet Count 152bil/L (150-400) Sodium Level 137mEq/L (134-144) Potassium Level 3.9mEq/L (3.5-5.2) Chloride Level 103mEq/L (97-108) Carbon Dioxide Level 23mmol/L (18-29) Blood Urea Nitrogen 14mg/dL (6-24) Creatinine 0.65mg/dL (0.76-1.27) Estimat Glomerular Filtration Rate 135mL/min (>59) Glucose Level 93mg/dL (60-99) Calcium Level 8.5mg/dL (8.5-10.1) Thyroid Stimulating Hormone (TSH) 5.920uIU/mL (0.450-4.500) Discharge Medications Discharge Medications ([Thiamine]) 100 MG TABLET 100 MG PO DAILY Prescribed by: CAMMY MCCLOUD DO Levothyroxine (Levothyroxine) 200 Mcg Tablet 200 MCG PO MORNING (Reported) As needed Chlordiazepoxide (Chlordiazepoxide) 25 Mg Capsule 25 MG PO Q6H PRN PRN Withdrawal Symptoms Take as directed per taper over the next 4 days Prescribed by: CAMMY MCCLOUD, DO Additional med instructions Your body may not go through withdrawals from alcohol since you have only been drinking for a short time however we want to make sure that if you do start to have symptoms that they are treated. Withdrawal symptoms include: pulse greater than 90 bpm, elevated blood pressure , she came in your hands, irritability, headache Take the chlordiazepoxide (Librium) on the following schedule: Day 1: Take 2-4 tablets every 4-6 hours as needed for withdrawal symptoms Day 2: Take 2-4 tablets every 6-8 hours as needed for withdrawal symptoms Day 3: Take 2-4 tablets every 12 hours as needed for withdrawal symptoms Day 4: Take 2-4 tablets at bedtime as needed for withdrawal symptoms Continue to take thiamine for the next 10 days. I recommend taking a multivitamin [id number] this will help supplement nutrients until you are eating full well-balanced diet. Followup Plan Disposition: Discharged home with Librium taper Follow-up plan Follow up with your primary care provider in one week. When you call to schedule an appointment make sure that they know it is for hospital follow-up. Discharge Diet: Heart Healthy Discharge Activity: No restrictions Patient Instructions You did not have a heart attack, there is only a slight narrowing of one of your heart vessels visualized on cardiac catheterization. Continue to exercise regularly and eat a well-balanced heart healthy diet. Follow-up Provider: YOLANDE WHITE Follow-up with PCP in: 1 week Attending Statement The patient was seen and examined on 01/01/[address] Mccloud , I agree with the discharge summary as outlined in the note above. copies to: YOLANDE WHITE Erika R DO Jan 01, 2017 20:49 Renan Yap MD Jan 02, 2017 07:44
--- NOTE | 2017-01-04 09:09 | DRSVH ---
CORRECTED PATIENT NAME, MRN, AND ACCESSION/PLACER NUMBER ON 12/31/16 PROCEDURE: CT BRAIN WITHOUT CONTRAST ([id number]) INDICATIONS: altered level of consciousness TECHNIQUE: Noncontrast 4.5 mm thick angled axial sections acquired from the foramen magnum to the vertex, with c oronal reformats. COMPARISON: None. FINDINGS: Image quality: Excellent. CSF spaces: Basal cisterns are patent. No extra-axial fluid collections. The ventricles are symmet padmini in size and shape. Brain: No intracranial bleeds or masses. There is cerebral volume loss for age, with resultant vent ricular and sulcal prominence. There are periventricular and deep white matter chronic small vessel ischemic changes. Chronic appearing infarcts are present within the left basal ganglia external capsu le. There is intracranial internal carotid artery atherosclerosis. Skull and face: Calvarium and visualized facial bones appear intact, without suspicious lesions. Sinuses: There is mild mucosal thickening of the frontal and maxillary sinuses. Visualized sinuses a nd mastoids are otherwise clear. IMPRESSION: 1. No acute intracranial findings. 2. Extensive findings likely associated with chronic microvascular ischemic changes and old basal mable glia infarcts. Dictated by: Mara Yanez M.D. on 12/30/2016 at 19:44 Approved by: Mara Yanez M.D. on 12/30/2016 at 19:47
== END 2017-01-01 14:35 | disposition home or self-care (01) ==
LOC: SED 18:13 → EDBD 18:13 → MPC 12-31 09:08
PROVIDERS: ADMIT Internal Medicine; ATTEND Internal Medicine
DX: R94.31 Abnormal electrocardiogram [ECG] [EKG] (principal); F10.129 Alcohol abuse with intoxication, unspecified; Y90.8 Blood alcohol level of 240 mg/100 ml or more; R74.0 Nonspecific elevation of levels of transaminase and lactic acid dehydrogenase [LDH]; R79.89 Other specified abnormal findings of blood chemistry; E03.9 Hypothyroidism, unspecified; Z87.891 Personal history of nicotine dependence
CPT/HCPCS: 36415; 70450; 80048; 80053; 82075; 84443; 84484; 85025; 85027; 85610; 85730; 93005; 93458; 96360; 96361; 99152; 99153; 99291; C1760; C1769; C8929; G0378; G0480; J1644; J2250; J2405; J3010; J3360; J3475; J7030; J7050; Q9967

== ENCOUNTER 2017-01-17 17:51 | Emergency (ER) | payer OTHER ==
[~2017-01-17] VITALS: Ht 193 cm; Wt 83.9 kg
[2017-01-17 17:50] VITALS: BP 106/73; PULSE 62; RESP 12; O2SAT 97
[~2017-01-17 17:51] MED LIST: CHLO25CA10 PO; LEVO200T6 PO; Thiamine PO
--- NOTE | 2017-01-17 18:36 | ED.REPORT ---
HPI-Overdose/Alcohol Toxicity Date of Service Jan 17, 2017 ED Provider: Roland Ortiz MD Patient is a 56 year old male with a history of alcohol abuse, hypothyroidism, hepatitis C, and alcohol withdrawal seizures who presents to the ED via EMS intoxicated after drinking large quantities of alcohol over the past 2-3 days. He was found by his daughter with decreased response prior to arrival, with EMS called. His father had been enroute to check on the patient, concerned about his well being The patient had been hospitalized 2 weeks ago for similar symptoms at which time he admitted to relapse 1 week prior. Before this relapse he had been sober for 5 years. The patient admits to drinking alcohol today but denies any other drug consumption at this time. His father suspected he was drinking alcohol a couple days ago after a conversation over the phone and his daughter later confirmed he had been drinking again. No seizures have been reported outside of his those associated with alcohol withdrawal. Patient denies being suicidal. His father has not noted any suicidal tendencies and states that he simply cannot stop himself. He has not had any treatment for his alcohol abuse since discharge from the hospital. History is limited by the patient's current intoxicated state, with much of the history provided by his father Nursing Notes Stated Complaint: INTOXICATED Chief Complaint: Substance Abuse Nursing Notes Reviewed: Yes ([facility], [employer] not reconciled) Allergies: Coded Allergies: No Known Allergies (Unverified , 12/30/16) Scheduled ([Thiamine]) 100 MG TABLET 100 MG PO DAILY Levothyroxine (Levothyroxine) 200 Mcg Tablet 200 MCG PO MORNING Scheduled PRN Chlordiazepoxide (Chlordiazepoxide) 25 Mg Capsule 25 MG PO Q6H PRN PRN Withdrawal Symptoms Take as directed per taper over the next 4 days General Time Seen by Provider: 18:09 Chief Complaint Intoxicated, alcohol Hx Obtained From: Patient, Other family... 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, although patient did not have any difficulties with major withdrawal on recent hospitalization) History of hep C Hypothyroidism History of dyspepsia Reports: Coronary artery disease Past Surgical History Cardiac catheterization 12/31/2016 Minor 20% left anterior descending artery stenosis but no severe coronary disease, left ventricular ejection fraction 65% Smoking History Former Smoker Social History Drug Use: In recovery Other Social History: Good social support, Lives with children, Local resident Ambulatory Status Independent Review of Systems Unable to Obtain ROS Intoxicated Physical Exam Initial Vital Signs Vital Signs (First) Date Time Temp Pulse Resp B/P Pulse Ox O2 Delivery O2 Flow Rate FiO2 01/17/17 17:50 36.4 62 12 106/73 97 01/17/17 20:47 Room Air Initial VS: Reviewed, Vital signs normal Head / Eyes: Atraumatic, Normocephalic, PERRL ENT: Mucous membranes moist, Conjunctiva normal, No scleral icterus Extremities: Vascular intact, Neuro intact, No swelling, No tenderness ( atraumatic) Skin: Warm, Dry, No cyanosis General/Constitutional: Awake, Alert Behavior: Positive: Appears intoxicated Appearance / Presentation: Positive: Intoxicated smells of EtOH no other evidence of toxidromes Respiratory / Chest: Atraumatic, Breath sounds NL, Breath sounds = bilat, No respiratory distress (no signs of respiratory depression), No rales, No rhonchi , No wheezing Cardiovascular: Heart rate NL, Regular rhythm, Heart sounds NL, No gallop, No murmurs, No rubs Abdomen: Atraumatic, Soft, Non-tender, No guarding, No rebound Neurologic: No motor deficits, No sensory deficits Speech: Positive: Slurred (nearly unitelligable) Processes speech slowly Psychiatric: Not suicidal, Not homicidal Interpretation & Diagnostics Lab Results Interpretation Result Diagram: 01/17/17 1830 01/17/17 183 Test 01/17/17 18:30 01/17/17 18:45 White Blood Count 9.6th/mm3 (3.8-10.1) Red Blood Count 5.04mil/mm3 (4.40-5.80) Hemoglobin 16.0g/dL (13.8-17.2) Hematocrit 47.1% (41.0-50.0) Mean Corpuscular Volume 93.5fL (81-100) Mean Corpuscular Hemoglobin 31.7pg (27.0-35.0) Mean Corpuscular Hemoglobin Concent 34.0% (32.0-37.0) Red Cell Distribution Width 14.6% (12.3-15.4) Platelet Count 292bil/L (150-400) Neutrophils (%) (Auto) 55.4% (40-74) Lymphocytes (%) (Auto) 33.8% (14-46) Monocytes (%) (Auto) 6.6% (4-12) Eosinophils (%) (Auto) 2.9% (0-5) Basophils (%) (Auto) 1.1% (0-3) Sodium Level 144mEq/L (134-144) Potassium Level 3.8mEq/L (3.5-5.2) Chloride Level 104mEq/L (97-108) Carbon Dioxide Level 21mmol/L (18-29) Blood Urea Nitrogen 8mg/dL (6-24) Creatinine 0.72mg/dL (0.76-1.27) Estimat Glomerular Filtration Rate 120mL/min (>59) Glucose Level 95mg/dL (60-99) Calcium Level 8.7mg/dL (8.5-10.1) Magnesium Level 2.1mg/dL (1.6-2.6) Total Bilirubin 0.5mg/dL (0.0-1.2) Aspartate Amino Transf (AST/SGOT) 93U/L (0-50) Alanine Aminotransferase (ALT/SGPT) 52U/L (0-44) Alkaline Phosphatase 73U/L (25-150) Total Protein 7.3g/dL (6.4-8.4) Albumin 4.0g/dL (3.4-5.0) Hold Whitney Top Tube Received (Received) Alcohols 383mg/dL (0-10) Hepatitis C Comment . Lab Results Interpretation: CBC Normal CMP normal except for mild LFT abnormalities (known hep C) EtOH severely elevated Hep and HIV studies are pending (RN notes indicates needle sharing) ECG Interpretation ECG Interpretation: Persistent ST elivation. V2-V5 are the most pronounced. No OR depression. Time: 18:15 Interpreted by: ED physician Normal ECG Interpretation: Normal sinus rhythm (71) Re-Eval/Medical Decision Med Decision/Clinical Course This is a 56-year-old male presents by EMS with concerns of heavy intoxication, found by family. History of abuse and was admitted 2 weeks ago with severe intoxication. However he did well without significant withdrawal symptoms, and apparently is a binge drinker. His father is present and reports he called the patient and heard a slurred voice was worried about a went to check on him-and in the interim another family member found the patient heavily intoxicated and called 911 so the patient is brought to the ED. The patient is so severely intoxicated that I cannot understand what he is saying with his slurred speech, but he is adequately protecting his airway. The patient has no visible signs of trauma or injury. He has no focal deficits beyond the expressive aphasia and ataxia that would be explained by alcohol. Review of his records indicates he really did not have significant withdrawal previously. Given the severity of his intoxication, labs were drawn-confirm a severely elevated alcohol again today. His therefore being observed pending metabolism improvement. Over several hours he made improvement, his speech is more easy to understand the pain started intoxicated. But means are not finding indication for emergent neuro imaging. The patient is given contradictory answers as to whether or not he is interested in detox- at one point stating he was, and then minutes later stating flatly that he was not. At this point, the patient's being observed for out of metabolize alcohol to permit reevaluation. Given that multiple hours of observation as he is metabolizing to a level that will permit re-eval (and maybe detox placement if he is agreeable), the patient received 50mg of librium and oral multivitamins. , Patient's care is being turned over to Dr. Hebert at change of shift. Source of Hx: Old records Re-Evaluation/Progress : Time of Eval: 22:34 Patient Status: Condition unchanged Re-Evaluation/Progress Note: Speech is still slurred. Patient is still highly intoxicated and attempted to move over the bed rails to no avail. Consultation : Consulted With: sample worker Call Returned at: 19:00 Note: Spoke with the ED social worker clinical. Patient is too intoxicated to be evaluated currently. Patient sometimes states that he would like to go to Crisis [facility] and other times states that he does not want treatment. Discharge & Departure Shift Change Sign-Out Patient Care Transferred: Yes Discussed Complaint(s): Yes Laboratory Evaluation: Back, reviewed by me Additonal Information: Sobering Impression: Primary Impression: Alcohol intoxication Complication of substance-induced condition: uncomplicated Qualified Code: F10.120 - Alcohol abuse with intoxication, uncomplicated Additional Impressions: Alcohol abuse Substance abuse Referrals: [facility] Care Transferred to: Dr. Hebert Care Transferred at: 00:00 Neelam Attestation Portions of this note were transcribed by Fermin Lutz and Deborah Jose. I, Dr. Ortiz personally performed the history, physical exam and medical decision-making; I reviewed and confirmed the accuracy of the information in the transcribed note. Signed by: Fermin Lutz and Deborah Jose, [place], 01/17/2017 [id number] Roland Ortiz MD Jan 17, 2017 18:36 Fermin Lutz Jan 17, 2017 18:43 Deborah Jose Jan 17, 2017 19:40
[2017-01-17 18:47] LABS: BASOPHILS % (AUTO) 1.1 % (0-3); EOSINOPHILS % (AUTO) 2.9 % (0-5); MONOCYTES % (AUTO) 6.6 % (4-12); Mean Corpuscular Hemoglobin 31.7 pg (27.0-35.0); Mean Corpuscular Volume 93.5 fL (81-100); NEUTROPHILS % (AUTO) 55.4 % (40-74); Platelet Count 292 bil/L (150-400)
[2017-01-17 19:08] LABS: Magnesium 2.1 mg/dL (1.6-2.6)
[2017-01-17 20:47] VITALS: BP 109/66; PULSE 77; RESP 13; O2SAT 100
[2017-01-17] MEDS ORDERED: chlordiazePOXIDE 25 mg Capsule PO ONE (22:35)
[2017-01-18 00:17] VITALS: BP 105/70; PULSE 69; RESP 18; O2SAT 95
[2017-01-18 04:56] VITALS: BP 99/63; PULSE 66; RESP 16; O2SAT 98
[2017-01-18 10:00] VITALS: BP 99/63; PULSE 66; RESP 16; O2SAT 98
[2017-01-19 03:11] LABS: Hepatitis A Antibody IgM Negative (Negative); Hepatitis B Core Antibody IgM Negative (Negative)
== END 2017-01-18 09:33 | disposition home or self-care (01) ==
LOC: SED 17:51 → EDBD 17:51 → EDSEX 17:51 → SED 01-18 09:33
DX: F10.120 Alcohol abuse with intoxication, uncomplicated (principal); F15.10 Other stimulant abuse, uncomplicated; E03.9 Hypothyroidism, unspecified; I25.10 Atherosclerotic heart disease of native coronary artery without angina pectoris; Z87.891 Personal history of nicotine dependence
CPT/HCPCS: 36415; 80053; 82075; 83735; 85025; 86705; 86709; 87340; 87341; 93005; 99284; G0433; G0472; G0480